=== PATIENT | female | born 1950 | race Caucasian/White ===

== ENCOUNTER 2019-06-04 08:28 | Emergency (ER) | payer OTHER ==
[2019-06-04] MEDS ORDERED: BUPIVACAINE/PF 0.5% 30ML VIAL ONE (08:55)
[2019-06-04] MEDS ORDERED: LIDOCAINE HCL-MPF 2% 5ML VIAL ONE (08:56)
== END 2019-06-04 11:04 | disposition home or self-care (01) ==
LOC: EDH 08:28
DX: R51 Headache (principal); S82.832D Other fracture of upper and lower end of left fibula, subsequent encounter for closed fracture with routine healing; I10 Essential (primary) hypertension; E78.00 Pure hypercholesterolemia, unspecified; Z88.2 Allergy status to sulfonamides; Z90.710 Acquired absence of both cervix and uterus; Z90.49 Acquired absence of other specified parts of digestive tract; Z90.89 Acquired absence of other organs; Z87.891 Personal history of nicotine dependence; X58.XXXD Exposure to other specified factors, subsequent encounter
CPT/HCPCS: 20552; 73610; 99284; J3490 ×2

== ENCOUNTER 2019-08-28 18:19 | Emergency (ER) | payer OTHER ==
[2019-08-28] MEDS ORDERED: MORPHINE SULFATE 4 MG/1ML SYG ONE ×2 (19:24→22:05)
[2019-08-28] MEDS ORDERED: KETOROLAC TROMETHAMINE 30MG/ML ONE (22:05)
== END 2019-08-28 22:41 | disposition home or self-care (01) ==
LOC: EDH 18:19
DX: S90.32XA Contusion of left foot, initial encounter (principal); E78.00 Pure hypercholesterolemia, unspecified; I10 Essential (primary) hypertension; Z90.49 Acquired absence of other specified parts of digestive tract; Z90.710 Acquired absence of both cervix and uterus; Z88.2 Allergy status to sulfonamides; X58.XXXA Exposure to other specified factors, initial encounter; Y93.89 Activity, other specified; Y92.39 Other specified sports and athletic area as the place of occurrence of the external cause; Y99.8 Other external cause status
CPT/HCPCS: 73630; 73700; 96372 ×3; 99284; J1885; J2270 ×2

== ENCOUNTER → 2019-12-14 | Outpatient (CLI) | payer MEDICARE | END | disposition home or self-care (01) | LOC: RAH 13:40 | PROVIDERS: ATTEND Physical Medicine & Rehabilitation | DX: M53.2X2 Spinal instabilities, cervical region (principal); M54.81 Occipital neuralgia | CPT/HCPCS: 72050 ==

== ENCOUNTER 2021-04-08 23:47 | Emergency (ER) | payer MEDICARE ==
[~2021-04-08] VITALS: Ht 175.3 cm; Wt 95.3 kg
[2021-04-09 00:11] VITALS: BP 168/85
[2021-04-09] MEDS ORDERED: LIDOCAINE HCL-MPF 1% 2ML VIAL ONE (00:14)
[2021-04-09] MEDS ORDERED: PHENAZOPYRIDINE HCL 200 MG TABLET ONE (00:26)
[2021-04-09] MEDS ORDERED: CEFTRIAXONE 1G VIAL IM ONE (00:30)
[2021-04-09] MEDS ORDERED: PHENAZOPYRIDINE HCL 200 MG TABLET PO ONE (00:30)
[2021-04-09 00:32] LABS: APPEARANCE,URINE CLEAR (CLEAR); BILIRUBIN,URINE MODERATE (NEGATIVE); COLOR,URINE YELLOW (YELLOW); GLUCOSE, URINE (UA) NEGATIVE (NEGATIVE); KETONES,URINE 5 mg/dL (NEGATIVE); LEUKOCYTE ESTERASE ,URINE LARGE (NEGATIVE); NITRATE,URINE POSITIVE (NEGATIVE); OCCULT BLOOD,URINE LARGE (NEGATIVE); PROTEIN,URINE >=300 mg/dL (NEGATIVE)
[2021-04-09 00:42] LABS: BACTERIA,URINE Few /HPF (None Seen); MUCUS,URINE Few LPF (None Seen); RBC,URINE TNTC /HPF (0-1); SQUAMOUS EPITHELIAL CELL,UR None Seen /HPF (0-2); WBC,URINE TNTC /HPF (0-1)
[2021-04-09 01:07] VITALS: BP 167/78
[2021-04-09 02:02] VITALS: BP 165/86
[2021-04-09] MEDS ORDERED: CEPH500B PO (02:07)
[2021-04-09] MEDS ORDERED: PHEN-847 PO (02:09)
== END 2021-04-09 02:24 | disposition home or self-care (01) ==
LOC: EDH 23:47
DX: N30.91 Cystitis, unspecified with hematuria (principal); K21.9 Gastro-esophageal reflux disease without esophagitis; Z88.2 Allergy status to sulfonamides
CPT/HCPCS: 81001; 87077; 87088; 87186; 96372; J0696; J3490

== ENCOUNTER 2021-07-11 19:35 | Inpatient (IN) | payer MEDICARE, OTHER ==
[~2021-07-11] VITALS: Ht 175.3 cm; Wt 95.9 kg
[~2021-07-11 19:35] MED LIST: CEPH500B PO; PHEN-847 PO
[2021-07-11 20:26] LABS: BASOPHILS % (AUTO) 0.5 % (0.0-5.0); HEMATOCRIT 36.2 % (36-48); LYMPHOCYTES % (AUTO) 34.5 % (21.0-51.0); MEAN CORPUSCULAR HEMOGLOBIN 29.5 pg (27.0-33.0); MEAN CORPUSCULAR HGB CONC 33.7 g/dL (32.0-36.0); MEAN CORPUSCULAR VOLUME 87.4 fL (79-99); MONOCYTES % (AUTO) 6.2 % (3.0-13.0); NEUTROPHILS % (AUTO) 58.4 % (40.0-77.0); PLATELET COUNT (AUTO) 240 K/uL (130-400); RED BLOOD CELL COUNT(AUTO) 4.14 MIL/uL (4.00-5.50); RED CELL DISTRIBUTION WIDTH 13.9 % (11.0-15.5); WHITE BLOOD COUNT (AUTO) 10.4 K/uL (4.8-10.8)
[2021-07-11 20:36] LABS: CREATININE 0.8 mg/dL (0.5-1.5); POTASSIUM 3.2 mmol/L (3.5-5.1)
[2021-07-11 20:42] LABS: ALBUMIN 3.8 g/dL (3.5-5.0); B-TYPE NATRIURETIC PEPTIDE 261 pg/mL (0-100); BILIRUBIN,TOTAL 0.4 mg/dL (0.2-1.0); TOTAL PROTEIN, SERUM 7.2 g/dL (6.0-8.3)
[2021-07-11] MEDS ORDERED: METOPROLOL TARTRATE 1 MG/ML 5ML VIAL IV ONE (21:00)
[2021-07-11 21:34] LABS: APPEARANCE,URINE Clear (CLEAR); BILIRUBIN,URINE Negative (NEGATIVE); COLOR,URINE Dark Yellow (YELLOW); GLUCOSE, URINE (UA) Negative (NEGATIVE); KETONES,URINE Negative (NEGATIVE); LEUKOCYTE ESTERASE ,URINE Negative (NEGATIVE); NITRATE,URINE Negative (NEGATIVE); OCCULT BLOOD,URINE Negative (NEGATIVE); PH,URINE 6.5 (5.0-8.0); PROTEIN,URINE Trace mg/dL (NEGATIVE); UROBILINOGEN,URINE 0.2 mg/dL (0.2-1.0)
[2021-07-11 21:47] LABS: BACTERIA,URINE Few /HPF (None Seen); RBC,URINE 0-1 /HPF (0-1); SQUAMOUS EPITHELIAL CELL,UR Moderate /HPF (0-2)
[2021-07-11] MEDS ORDERED: OMEP20CA12 PO (21:51)
[2021-07-11] MEDS ORDERED: POTA-79 PO (21:51)
[2021-07-11] MEDS ORDERED: LEVO25CA4 PO (21:51)
[2021-07-11] MEDS ORDERED: GABA600T10 PO (21:51)
[2021-07-11] MEDS ORDERED: DRON10CA5 PO (21:51)
[2021-07-11] MEDS ORDERED: LOSA25TA41 PO (21:51)
[2021-07-11] MEDS ORDERED: ATOR40TA69 PO (21:51)
[2021-07-11] MEDS ORDERED: METF500S7 PO (21:51)
[2021-07-11] MEDS ORDERED: METO25TA6 PO (21:51)
[2021-07-11] MEDS ORDERED: FUROSEMIDE 20MG VIAL ONE (22:24)
[2021-07-11] MEDS ORDERED: FUROSEMIDE 20MG VIAL IV ONE (22:30)
[2021-07-11] MEDS ORDERED: KCL 20 MEQ ERTAB PO ONE (22:30)
[2021-07-11] MEDS ORDERED: LACTULOSE 20 GM/30 ML UDCUP PO PRN (23:00)
[2021-07-11] MEDS ORDERED: HYDRALAZINE 20MG/ML VIAL IV PRN (23:00)
[2021-07-11] MEDS ORDERED: HYDROCODONE/ACETAMINOPHEN 5/325 MG TAB PO PRN ×2 (23:00)
[2021-07-11] MEDS ORDERED: MAG/ALUM/SIMETH 30 ML UDCUP PO PRN (23:00)
[2021-07-11] MEDS ORDERED: GUAIFENESIN-DM 200/20 MG 10 ML PO PRN (23:00)
[2021-07-11] MEDS ORDERED: ONDANSETRON 4MG INJ IV PRN (23:00)
[2021-07-11 23:07] LABS: CHOLESTEROL 109 mg/dL (<200); HDL CHOLESTEROL 31 mg/dL (35-85); LDL DIRECT 57 mg/dL (0-99); TRIGLYCERIDES 168 mg/dL (30-200)
[2021-07-11 23:14] LABS: PROTHROMBIN TIME 10.9 SEC (9.6-11.6)
[2021-07-11 23:15] LABS: PARTIAL THROMBOPLASTIN TIME 24.6 SEC (26.3-35.5)
[2021-07-11 23:16] LABS: HEMOGLOBIN A1C 5.8 % (4.0-6.0)
[2021-07-11 23:19] LABS: MAGNESIUM 1.4 mg/dL (1.80-2.40); THYROID STIMULATING HORMONE 3.81 uIU/mL (0.36-3.74)
[2021-07-11] MEDS: ENOXAPARIN SODIUM 100 MG/1 ML SQ SCH (23:20)
[2021-07-12] VITALS (7 sets, daily range): BP systolic 132–164; BP diastolic 85–107
[2021-07-12] MEDS ORDERED: METOPROLOL TARTRATE 1 MG/ML 5ML VIAL IV ONE ×2 (03:21→03:30)
[2021-07-12] MEDS ORDERED: MAGNESIUM 2GM PREMIX 50ML 50 ML IV ONE (03:22)
[2021-07-12] MEDS ORDERED: MAGNESIUM 2GM PREMIX 50ML 50 ML IV SCH (03:30)
[2021-07-12] MEDS ORDERED: ACETAMINOPHEN 325 MG TAB PO PRN (04:30)
[2021-07-12] MEDS: ACETAMINOPHEN 325 MG TAB PO PRN ×2 (04:44→17:09)
[2021-07-12 04:45] LABS: CREATININE 0.8 mg/dL (0.5-1.5); MAGNESIUM 2.6 mg/dL (1.80-2.40); POTASSIUM 3.1 mmol/L (3.5-5.1)
[2021-07-12] MEDS ORDERED: DILTIAZEM 125 MG/25 ML INJ 125 MG in 0.9%NACL 100ML 100 ML IV PRN (07:00)
[2021-07-12] MEDS ORDERED: DILTIAZEM 25MG INJ IVP PRN (07:00)
[2021-07-12] MEDS: FAMOTIDINE 20MG TAB PO SCH ×2 (08:15→20:08)
[2021-07-12] MEDS: LOSARTAN 25 MG TABLET PO SCH (08:16)
[2021-07-12] MEDS: ATORVASTATIN 40 MG TABLET PO SCH (08:16)
[2021-07-12] MEDS: FUROSEMIDE 20MG VIAL IV SCH (08:17)
[2021-07-12] MEDS ORDERED: METOPROLOL TARTRATE 25 MG TAB PO SCH (09:00)
[2021-07-12] MEDS: GABAPENTIN 300 MG CAPSULE PO SCH ×2 (10:04→20:08)
[2021-07-12] MEDS: LEVOTHYROXINE 25 MCG TABLET PO SCH (10:05)
[2021-07-12] MEDS: ENOXAPARIN SODIUM 100 MG/1 ML SQ SCH ×2 (10:07→23:06)
[2021-07-12] MEDS: KCL 20 MEQ ERTAB PO PRN ×3 (10:24→17:06)
[2021-07-12] MEDS: METOPROLOL TARTRATE 50 MG TAB PO SCH (20:08)
[2021-07-12] MEDS: APIXABAN 5 MG TABLET PO SCH (20:08)
[2021-07-12] MEDS: LOSARTAN/HYDROCHLOROTHIAZIDE 50-12.5MG TABLET PO SCH (20:09)
[2021-07-13] VITALS: BP 144/82
[2021-07-13 04:00] VITALS: BP 160/98
[2021-07-13 05:01] LABS: BASOPHILS % (AUTO) 0.5 % (0.0-5.0); EOSINOPHILS % (AUTO) 1.7 % (0.0-8.0); HEMATOCRIT 40.4 % (36-48); LYMPHOCYTES % (AUTO) 28.4 % (21.0-51.0); MEAN CORPUSCULAR HEMOGLOBIN 28.8 pg (27.0-33.0); MEAN CORPUSCULAR HGB CONC 31.7 g/dL (32.0-36.0); MEAN CORPUSCULAR VOLUME 90.8 fL (79-99); MONOCYTES % (AUTO) 6.5 % (3.0-13.0); NEUTROPHILS % (AUTO) 62.5 % (40.0-77.0); PLATELET COUNT (AUTO) 255 K/uL (130-400); RED BLOOD CELL COUNT(AUTO) 4.45 MIL/uL (4.00-5.50); RED CELL DISTRIBUTION WIDTH 13.8 % (11.0-15.5)
[2021-07-13 05:27] LABS: ALBUMIN 3.7 g/dL (3.5-5.0); BILIRUBIN,TOTAL 0.7 mg/dL (0.2-1.0); CREATININE 0.8 mg/dL (0.5-1.5); POTASSIUM 3.6 mmol/L (3.5-5.1); TOTAL PROTEIN, SERUM 7.1 g/dL (6.0-8.3)
[2021-07-13] MEDS: LEVOTHYROXINE 25 MCG TABLET PO SCH (06:27)
[2021-07-13] MEDS: ATORVASTATIN 40 MG TABLET PO SCH (09:32)
[2021-07-13] MEDS: GABAPENTIN 300 MG CAPSULE PO SCH (09:32)
[2021-07-13] MEDS: LOSARTAN 25 MG TABLET PO SCH (09:32)
[2021-07-13] MEDS: LOSARTAN/HYDROCHLOROTHIAZIDE 50-12.5MG TABLET PO SCH (09:32)
[2021-07-13] MEDS: APIXABAN 5 MG TABLET PO SCH (09:33)
[2021-07-13] MEDS: FUROSEMIDE 20MG VIAL IV SCH (09:33)
[2021-07-13] MEDS: FAMOTIDINE 20MG TAB PO SCH (09:33)
[2021-07-13] MEDS: METOPROLOL TARTRATE 50 MG TAB PO SCH (09:33)
[2021-07-13 09:47] VITALS: BP 162/85
[2021-07-13] MEDS: ENOXAPARIN SODIUM 100 MG/1 ML SQ SCH (11:38)
[2021-07-13 12:46] VITALS: BP 161/98
[2021-07-13] MEDS ORDERED: APIX5TAB PO (15:30)
== END 2021-07-13 16:45 | disposition home or self-care (01) | DRG 291 ==
LOC: EDH 19:35 → EDHIP 22:33 → 4CH 07-12 01:37
PROVIDERS: ADMIT Hospitalist; ATTEND Hospitalist
DX: I11.0 Hypertensive heart disease with heart failure (principal); I50.21 Acute systolic (congestive) heart failure; I16.0 Hypertensive urgency; I48.91 Unspecified atrial fibrillation; E03.9 Hypothyroidism, unspecified; K21.9 Gastro-esophageal reflux disease without esophagitis; E11.40 Type 2 diabetes mellitus with diabetic neuropathy, unspecified; E78.00 Pure hypercholesterolemia, unspecified; Z79.01 Long term (current) use of anticoagulants; Z90.710 Acquired absence of both cervix and uterus; Z90.49 Acquired absence of other specified parts of digestive tract; Z88.2 Allergy status to sulfonamides; Z83.3 Family history of diabetes mellitus; Z82.3 Family history of stroke; Z82.49 Family history of ischemic heart disease and other diseases of the circulatory system
CPT/HCPCS: 36415; 71045; 80048; 80053; 80061; 81001; 82330; 82550; 82948; 83036; 83735; 83880; 84100; 84443; 84481; 84484; 85025; 85610; 85730; 93005; 93306; 93356; 99291; G0378; J0360; J1650; J1940; J3475; J3490

== ENCOUNTER → 2021-12-18 | Outpatient (CLI) | payer OTHER ==
[~2021-12-18] MED LIST changes: +APIX5TAB PO; +ATOR40TA69 PO; -CEPH500B PO; +DRON10CA5 PO; +GABA600T10 PO; +LEVO25CA4 PO; +LOSA25TA41 PO; +METF500S7 PO; +METO25TA6 PO; +OMEP20CA12 PO; +POTA-79 PO
== END | disposition home or self-care (01) ==
LOC: RAH 14:15
PROVIDERS: ATTEND Internal Medicine Cardiovascular Disease
DX: Z13.6 Encounter for screening for cardiovascular disorders (principal); I51.5 Myocardial degeneration
CPT/HCPCS: 75571

== ENCOUNTER → 2022-01-15 | Outpatient (CLI) | payer OTHER ==
[~2022-01-15] VITALS: Ht 175.3 cm; Wt 92.5 kg
[~2022-01-15] MED LIST changes: +REGADENOSON 0.4 MG/5 ML PF SYG IVP SCH
== END | disposition home or self-care (01) ==
LOC: SHCH 08:56
PROVIDERS: ATTEND Internal Medicine Cardiovascular Disease
DX: R93.1 Abnormal findings on diagnostic imaging of heart and coronary circulation (principal); R94.39 Abnormal result of other cardiovascular function study; I10 Essential (primary) hypertension; I48.91 Unspecified atrial fibrillation; Z79.01 Long term (current) use of anticoagulants
CPT/HCPCS: 78452; 93017; 96374; A9500 ×2; J2785

== ENCOUNTER → 2022-05-10 | Outpatient (CLI) | payer OTHER ==
[~2022-05-10] MED LIST changes: -METF500S7 PO; +METF500S9 PO; -REGADENOSON 0.4 MG/5 ML PF SYG IVP SCH
== END | disposition home or self-care (01) ==
LOC: SLP 20:18
PROVIDERS: ATTEND Internal Medicine Cardiovascular Disease
DX: G47.33 Obstructive sleep apnea (adult) (pediatric) (principal)
CPT/HCPCS: 95810

== ENCOUNTER → 2022-05-19 | Outpatient (CLI) | payer OTHER | END | disposition home or self-care (01) | LOC: SLP 20:17 | PROVIDERS: ATTEND Internal Medicine Cardiovascular Disease | DX: G47.33 Obstructive sleep apnea (adult) (pediatric) (principal) | CPT/HCPCS: 95811 ==

== ENCOUNTER 2023-01-07 08:56 | Emergency (ER) | payer OTHER ==
[~2023-01-07] VITALS: Ht 175.3 cm; Wt 95.3 kg
[~2023-01-07 08:56] MED LIST changes: -DRON10CA5 PO; +DRON10CA8 PO; +POTA-364 PO; -POTA-79 PO
[2023-01-07 09:00] VITALS: BP 137/73
[2023-01-07] MEDS ORDERED: PHEN-776 PO (09:22)
[2023-01-07] MEDS ORDERED: CEPH500T PO (09:22)
[2023-01-07] MEDS: CEPHALEXIN 500 MG CAPSULE PO ONE (09:28)
[2023-01-07] MEDS: PHENAZOPYRIDINE HCL 200 MG TABLET PO ONE (09:28)
== END 2023-01-07 09:34 | disposition home or self-care (01) ==
LOC: EDH 08:56
DX: N30.91 Cystitis, unspecified with hematuria (principal); I10 Essential (primary) hypertension; I48.91 Unspecified atrial fibrillation; E03.9 Hypothyroidism, unspecified; E78.00 Pure hypercholesterolemia, unspecified; K31.84 Gastroparesis; Z79.01 Long term (current) use of anticoagulants; Z79.899 Other long term (current) drug therapy; Z88.2 Allergy status to sulfonamides; Z90.49 Acquired absence of other specified parts of digestive tract

== ENCOUNTER 2023-09-24 11:41 | Emergency (ER) | payer OTHER ==
[~2023-09-24] VITALS: Ht 175.3 cm; Wt 85.3 kg
[~2023-09-24 11:41] MED LIST changes: +CEPH500T PO; +PHEN-776 PO
[2023-09-24 11:43] VITALS: BP 143/86; PULSE 59; RESP 20
[2023-09-24 15:26] LABS: BASOPHILS # (AUTO) 0.05 K/uL (0.00-0.20); BASOPHILS % (AUTO) 0.4 % (0.0-5.0); EOSINOPHILS # (AUTO) 0.06 K/uL (0.00-0.70); EOSINOPHILS % (AUTO) 0.5 % (0.0-8.0); HEMATOCRIT 42.1 % (36-48); IMMATURE GRANULOCYTE ABSOLUTE 0.03 K/uL (0-1); LYMPHOCYTES % (AUTO) 26.2 % (21.0-51.0); MEAN CORPUSCULAR HEMOGLOBIN 27.7 pg (27.0-33.0); MEAN CORPUSCULAR HGB CONC 34.4 g/dL (32.0-36.0); MEAN CORPUSCULAR VOLUME 80.3 fL (79-99); MONOCYTES # (AUTO) 0.8 K/uL (0.1-1.0); MONOCYTES % (AUTO) 7.1 % (3.0-13.0); NEUTROPHILS # (AUTO) 7.6 K/uL (1.8-7.7); NEUTROPHILS % (AUTO) 65.5 % (40.0-77.0); PLATELET COUNT (AUTO) 324 K/uL (130-400); RED BLOOD CELL COUNT(AUTO) 5.24 MIL/uL (4.00-5.50); RED CELL DISTRIBUTION WIDTH 13.2 % (11.0-15.5); WHITE BLOOD COUNT (AUTO) 11.6 K/uL (4.8-10.8)
[2023-09-24 15:34] LABS: APPEARANCE,URINE CLEAR (CLEAR); BILIRUBIN,URINE NEGATIVE (NEGATIVE); COLOR,URINE LIGHT-YELLOW (YELLOW); GLUCOSE, URINE (UA) NEGATIVE (NEGATIVE); KETONES,URINE 10 mg/dL (NEGATIVE); LEUKOCYTE ESTERASE ,URINE NEGATIVE Leu/uL (NEGATIVE); NITRATE,URINE NEGATIVE (NEGATIVE); OCCULT BLOOD,URINE NEGATIVE (NEGATIVE); PH,URINE 6.5 (5.0-8.0); PROTEIN,URINE NEGATIVE (NEGATIVE); UROBILINOGEN,URINE 0.2 mg/dL (0.2-1.0)
[2023-09-24 15:38] LABS: ADD UA MICROSCOPIC YES
[2023-09-24 15:39] LABS: BACTERIA,URINE RARE /HPF (None Seen); RBC,URINE 0-1 /HPF (0-1); SQUAMOUS EPITHELIAL CELL,UR FEW /HPF (0-2)
[2023-09-24 16:09] LABS: CREATININE 0.9 mg/dL (0.5-1.5); POTASSIUM 3.2 mmol/L (3.5-5.1)
[2023-09-24] MEDS: MORPHINE 2 MG SYG IVP ONE (16:13)
[2023-09-24] MEDS: 0.9%NACL 1000ML 1,000 ML IV ONE (16:13)
[2023-09-24] MEDS: ONDANSETRON 4MG INJ IVP ONE (16:13)
[2023-09-24 16:14] LABS: ALBUMIN 4.3 g/dL (3.5-5.0); BILIRUBIN,TOTAL 0.8 mg/dL (0.2-1.0); TOTAL PROTEIN, SERUM 8.5 g/dL (6.0-8.3)
[2023-09-24] MEDS ORDERED: IOHEXOL 350 MG/ML 100ML INFUS..BTL IV ONE (16:31)
[2023-09-24] MEDS ORDERED: ONDA8TAB12 PO (18:28)
== END 2023-09-24 18:55 | disposition home or self-care (01) ==
LOC: EDH 11:41
DX: E11.43 Type 2 diabetes mellitus with diabetic autonomic (poly)neuropathy (principal); K31.84 Gastroparesis; I10 Essential (primary) hypertension; E78.00 Pure hypercholesterolemia, unspecified; E03.9 Hypothyroidism, unspecified; I48.91 Unspecified atrial fibrillation; Z79.899 Other long term (current) drug therapy; Z79.84 Long term (current) use of oral hypoglycemic drugs; Z79.82 Long term (current) use of aspirin; Z90.49 Acquired absence of other specified parts of digestive tract; Z90.710 Acquired absence of both cervix and uterus; Z98.890 Other specified postprocedural states; Z88.2 Allergy status to sulfonamides
CPT/HCPCS: 99285; 74177; 96374; 96361; 96375; 80053; 83690; 85025; 81001; 36415; J2270; J7030; J2405; Q9967

== ENCOUNTER 2023-10-08 08:14 | Day surgery (SDC) | payer OTHER ==
[~2023-10-08] VITALS: Ht 175.3 cm; Wt 86.2 kg
[~2023-10-08 08:14] MED LIST changes: +0.9%NACL 1000ML 1,000 ML IV ONE; -CEPH500T PO; -DRON10CA8 PO; -PHEN-776 PO; -PHEN-847 PO; -POTA-364 PO; +POTA-79 PO
[2023-10-08 10:00] VITALS: BP 186/92; PULSE 64; RESP 15
[2023-10-08] MEDS ORDERED: METF-444 PO (10:18)
[2023-10-08] MEDS ORDERED: METOPROLOL PO (10:19)
[2023-10-08] MEDS ORDERED: HYDROXYZINE PO (10:24)
[2023-10-08] MEDS ORDERED: SPIR25TA6 PO (10:24)
[2023-10-08] MEDS ORDERED: HYDR25TA PO (10:24)
[2023-10-08] MEDS ORDERED: SOTA80TA PO (10:24)
[2023-10-08] MEDS ORDERED: TELM80TA10 PO (10:24)
== END 2023-10-08 11:30 | disposition home or self-care (01) ==
LOC: DAH 08:14 → ENDO 08:14
PROVIDERS: ATTEND Internal Medicine Gastroenterology
DX: R10.10 Upper abdominal pain, unspecified (principal); K22.70 Barrett's esophagus without dysplasia; K29.70 Gastritis, unspecified, without bleeding; R93.3 Abnormal findings on diagnostic imaging of other parts of digestive tract; K31.84 Gastroparesis; K44.9 Diaphragmatic hernia without obstruction or gangrene; K76.0 Fatty (change of) liver, not elsewhere classified; I48.91 Unspecified atrial fibrillation; K57.30 Diverticulosis of large intestine without perforation or abscess without bleeding; I10 Essential (primary) hypertension; E78.5 Hyperlipidemia, unspecified; Z53.8 Procedure and treatment not carried out for other reasons; Z79.01 Long term (current) use of anticoagulants; Z79.899 Other long term (current) drug therapy; Z98.890 Other specified postprocedural states; Z90.49 Acquired absence of other specified parts of digestive tract; Z90.710 Acquired absence of both cervix and uterus; Z90.89 Acquired absence of other organs; Z87.891 Personal history of nicotine dependence; Z72.89 Other problems related to lifestyle; Z86.010 Personal history of colon polyps
CPT/HCPCS: 82948; J7030

== ENCOUNTER 2023-10-15 08:30 | Day surgery (SDC) | payer OTHER ==
[2023-10-15] VITALS (11 sets, daily range): BP systolic 113–149; BP diastolic 58–92; PULSE 60–82; RESP 14–20
[~2023-10-15] VITALS: Ht 175.3 cm; Wt 83.9 kg
[~2023-10-15 08:30] MED LIST changes: -0.9%NACL 1000ML 1,000 ML IV ONE; +HYDR25TA PO; +HYDROXYZINE PO; -LOSA25TA41 PO; +METF-444 PO; -METF500S9 PO; -METO25TA6 PO; +METOPROLOL PO; +SOTA80TA PO; +SPIR25TA6 PO; +TELM80TA10 PO
[2023-10-15] MEDS: 0.9%NACL 1000ML 1,000 ML IV ONE (09:18)
[2023-10-15] MEDS ORDERED: PROPOFOL 10 MG/ML 20ML VIAL IV ONE (10:33)
[2023-10-15] MEDS ORDERED: LIDOCAINE HCL 400MG/20ML VIAL ONE (10:33)
== END 2023-10-15 12:10 | disposition home or self-care (01) ==
LOC: DAH 08:30 → ENDO 08:30
PROVIDERS: ATTEND Internal Medicine Gastroenterology
DX: R12 Heartburn (principal); R10.10 Upper abdominal pain, unspecified; R93.2 Abnormal findings on diagnostic imaging of liver and biliary tract; K29.50 Unspecified chronic gastritis without bleeding; K44.9 Diaphragmatic hernia without obstruction or gangrene; K22.70 Barrett's esophagus without dysplasia; K21.9 Gastro-esophageal reflux disease without esophagitis; K31.89 Other diseases of stomach and duodenum; K57.30 Diverticulosis of large intestine without perforation or abscess without bleeding; K31.84 Gastroparesis; K76.0 Fatty (change of) liver, not elsewhere classified; I10 Essential (primary) hypertension; E78.5 Hyperlipidemia, unspecified; I48.91 Unspecified atrial fibrillation; Z86.010 Personal history of colon polyps; Z90.49 Acquired absence of other specified parts of digestive tract; Z90.89 Acquired absence of other organs; Z90.710 Acquired absence of both cervix and uterus; Z87.891 Personal history of nicotine dependence; Z79.84 Long term (current) use of oral hypoglycemic drugs; Z79.899 Other long term (current) drug therapy
CPT/HCPCS: 82948; 43239; J3490; J7030 ×2; J2704; A4620; A4215; A4223; A7002; A4222; A4221; A4663; A4606

== ENCOUNTER → 2023-12-15 | Outpatient (CLI) | payer OTHER ==
[~2023-12-15] MED LIST changes: +POTA-364 PO; -POTA-79 PO
== END | disposition home or self-care (01) ==
LOC: RAH 11:17
PROVIDERS: ATTEND Internal Medicine
DX: Z12.31 Encounter for screening mammogram for malignant neoplasm of breast (principal); R92.333 Mammographic heterogeneous density, bilateral breasts
CPT/HCPCS: 77063; 77067

== ENCOUNTER 2024-01-04 15:52 | Observation (INO) | payer OTHER, MEDICARE ==
[~2024-01-04] VITALS: Ht 175.3 cm; Wt 83.7 kg
[2024-01-04 17:20] LABS: BASOPHILS # (AUTO) 0.07 K/uL (0.00-0.20); BASOPHILS % (AUTO) 0.6 % (0.0-5.0); EOSINOPHILS # (AUTO) 0.07 K/uL (0.00-0.70); EOSINOPHILS % (AUTO) 0.6 % (0.0-8.0); IMMATURE GRANULOCYTE ABSOLUTE 0.03 K/uL (0-1); LYMPHOCYTES # (AUTO) 3.2 K/uL (1.0-4.8); LYMPHOCYTES % (AUTO) 25.9 % (21.0-51.0); MEAN CORPUSCULAR HEMOGLOBIN 28.6 pg (27.0-33.0); MEAN CORPUSCULAR HGB CONC 33.7 g/dL (32.0-36.0); MONOCYTES # (AUTO) 0.9 K/uL (0.1-1.0); MONOCYTES % (AUTO) 7.6 % (3.0-13.0); NEUTROPHILS % (AUTO) 65.1 % (40.0-77.0); PLATELET COUNT (AUTO) 305 K/uL (130-400); RED BLOOD CELL COUNT(AUTO) 4.12 MIL/uL (4.00-5.50); RED CELL DISTRIBUTION WIDTH 13.5 % (11.0-15.5); WHITE BLOOD COUNT (AUTO) 12.3 K/uL (4.8-10.8)
[2024-01-04 17:28] LABS: CREATININE 0.9 mg/dL (0.5-1.0)
[2024-01-04 17:30] LABS: INR <= 0.93 (0.85-1.15)
[2024-01-04 17:31] LABS: PARTIAL THROMBOPLASTIN TIME 26.7 SEC (26.3-35.5)
[2024-01-04 17:37] LABS: ALBUMIN 3.6 g/dL (3.5-5.0); BILIRUBIN,TOTAL 0.3 mg/dL (0.2-1.0); TOTAL PROTEIN, SERUM 7.2 g/dL (6.0-8.3)
[2024-01-04] MEDS ORDERED: ACETAMINOPHEN 325 MG TAB PO PRN ×2 (20:30)
[2024-01-04] MEDS ORDERED: ONDANSETRON 4MG INJ IV PRN (20:30)
[2024-01-04] MEDS ORDERED: HYDRALAZINE 20MG/ML VIAL IV PRN (20:30)
[2024-01-04] MEDS: METOPROLOL TARTRATE 25 MG TAB PO SCH ×2 (21:00→21:15)
[2024-01-04] MEDS: FAMOTIDINE 20MG TAB PO SCH (21:14)
[2024-01-04] MEDS: GABAPENTIN 300 MG CAPSULE PO SCH (21:15)
[2024-01-04] MEDS: APIXABAN 5 MG TABLET PO SCH (21:15)
[2024-01-04] MEDS: HYDROXYZINE 25 MG TABLET PO SCH (21:15)
[2024-01-04] MEDS: 0.9%NACL 1000ML 1,000 ML IV SCH (21:16)
[2024-01-04] MEDS ORDERED: POTASSIUM CHLORIDE 20MEQ/100ML 100 ML IV PRN (22:30)
[2024-01-04] MEDS ORDERED: KCL 20 MEQ ERTAB PO PRN (22:30)
[2024-01-04] MEDS ORDERED: POTASSIUM CHLORIDE 10% ELIXIR 20 MEQ/15 ML UDCUP PO PRN (22:30)
[2024-01-04 22:35] VITALS: BP 144/83; PULSE 108; RESP 20
[2024-01-04 22:38] VITALS: BP 140/97; PULSE 118
[2024-01-04 22:41] VITALS: BP 143/74; PULSE 101
[2024-01-05 03:00] VITALS: BP 122/74; PULSE 84; RESP 21
[2024-01-05 04:47] LABS: BASOPHILS # (AUTO) 0.05 K/uL (0.00-0.20); BASOPHILS % (AUTO) 0.4 % (0.0-5.0); EOSINOPHILS # (AUTO) 0.07 K/uL (0.00-0.70); EOSINOPHILS % (AUTO) 0.6 % (0.0-8.0); HEMATOCRIT 35.5 % (36-48); IMMATURE GRANULOCYTE ABSOLUTE 0.06 K/uL (0-1); LYMPHOCYTES # (AUTO) 3.4 K/uL (1.0-4.8); LYMPHOCYTES % (AUTO) 29.1 % (21.0-51.0); MEAN CORPUSCULAR HEMOGLOBIN 28.4 pg (27.0-33.0); MEAN CORPUSCULAR HGB CONC 34.4 g/dL (32.0-36.0); MEAN CORPUSCULAR VOLUME 82.8 fL (79-99); MONOCYTES # (AUTO) 0.8 K/uL (0.1-1.0); MONOCYTES % (AUTO) 6.6 % (3.0-13.0); NEUTROPHILS # (AUTO) 7.4 K/uL (1.8-7.7); NEUTROPHILS % (AUTO) 62.8 % (40.0-77.0); PLATELET COUNT (AUTO) 293 K/uL (130-400); RED BLOOD CELL COUNT(AUTO) 4.29 MIL/uL (4.00-5.50); RED CELL DISTRIBUTION WIDTH 13.5 % (11.0-15.5); WHITE BLOOD COUNT (AUTO) 11.8 K/uL (4.8-10.8)
[2024-01-05 05:06] LABS: ALBUMIN 3.2 g/dL (3.5-5.0); BILIRUBIN,TOTAL 0.4 mg/dL (0.2-1.0); CREATININE 0.8 mg/dL (0.5-1.0); MAGNESIUM 1.8 mg/dL (1.80-2.40); POTASSIUM 4.4 mmol/L (3.5-5.1); THYROID STIMULATING HORMONE 3.39 uIU/mL (0.36-3.74); TOTAL PROTEIN, SERUM 6.6 g/dL (6.0-8.3)
[2024-01-05 05:11] LABS: HEMOGLOBIN A1C 6.4 % (4.0-6.0)
[2024-01-05] MEDS: MAGNESIUM 2GM PREMIX 50ML 50 ML IV PRN (05:15)
[2024-01-05] MEDS: INSULIN HUMULIN R 100 UNIT/ML 3ML SQ SCH (05:39)
[2024-01-05] MEDS: LEVOTHYROXINE 25 MCG TABLET PO SCH (05:40)
[2024-01-05 08:00] VITALS: BP_SYST 120; BP_SYST 124; BP_SYST 132; BP_DIAS 61; BP_DIAS 73; BP_DIAS 81; PULSE 55; PULSE 66; PULSE 71; RESP 18; RESP 19; O2SAT 95
[2024-01-05] MEDS: ATORVASTATIN 40 MG TABLET PO SCH (09:12)
[2024-01-05 12:00] VITALS: BP 119/71; PULSE 77; RESP 18
[2024-01-05 16:00] VITALS: BP 120/74; PULSE 64; RESP 19
[2024-01-05 20:00] VITALS: BP 155/72; PULSE 75; RESP 20; O2SAT 95
[2024-01-05] MEDS: GUAIFENESIN-DM 200/20 MG 10 ML PO PRN (20:45)
[2024-01-05] MEDS: SOTALOL HCL 80 MG TABLET PO SCH (20:47)
[2024-01-06] VITALS: BP_SYST 118; BP_SYST 120; BP_SYST 133; BP_DIAS 69; BP_DIAS 75; BP_DIAS 79; PULSE 76; RESP 18
[2024-01-06 04:00] VITALS: BP 126/68; PULSE 71; RESP 18
[2024-01-06 05:27] LABS: BASOPHILS # (AUTO) 0.05 K/uL (0.00-0.20); BASOPHILS % (AUTO) 0.4 % (0.0-5.0); HEMATOCRIT 31.3 % (36-48); IMMATURE GRANULOCYTE ABSOLUTE 0.03 K/uL (0-1); LYMPHOCYTES # (AUTO) 2.7 K/uL (1.0-4.8); LYMPHOCYTES % (AUTO) 23.3 % (21.0-51.0); MEAN CORPUSCULAR HEMOGLOBIN 28.9 pg (27.0-33.0); MEAN CORPUSCULAR HGB CONC 33.5 g/dL (32.0-36.0); MEAN CORPUSCULAR VOLUME 86.2 fL (79-99); MONOCYTES # (AUTO) 0.9 K/uL (0.1-1.0); MONOCYTES % (AUTO) 7.7 % (3.0-13.0); NEUTROPHILS # (AUTO) 7.8 K/uL (1.8-7.7); NEUTROPHILS % (AUTO) 68.3 % (40.0-77.0); PLATELET COUNT (AUTO) 284 K/uL (130-400); RED BLOOD CELL COUNT(AUTO) 3.63 MIL/uL (4.00-5.50); RED CELL DISTRIBUTION WIDTH 13.6 % (11.0-15.5); WHITE BLOOD COUNT (AUTO) 11.4 K/uL (4.8-10.8)
[2024-01-06 06:02] LABS: CREATININE 0.9 mg/dL (0.5-1.0); POTASSIUM 4.1 mmol/L (3.5-5.1)
[2024-01-06 08:00] VITALS: BP 123/53; PULSE 68; RESP 18; O2SAT 95
[2024-01-06 08:03] VITALS: BP 140/75; PULSE 75; RESP 18
[2024-01-06 08:06] VITALS: BP 120/66; PULSE 78; RESP 19
[2024-01-06] MEDS ORDERED: SOTA80TA PO (09:23)
[2024-01-06] MEDS ORDERED: AMOX1TAB15 PO (09:23)
[2024-01-06] MEDS: SPIRONOLACTONE 25 MG TAB PO SCH (10:02)
[2024-01-06] MEDS: CEFTRIAXONE 1G VIAL IVPB ONE (10:04)
[2024-01-06 12:00] VITALS: BP 172/76; PULSE 78; RESP 19
== END 2024-01-06 14:30 | disposition home or self-care (01) ==
LOC: EDH 15:52 → EDHIP 20:20 → 4AH 22:05
PROVIDERS: ADMIT Hospitalist; ATTEND Hospitalist
DX: R00.1 Bradycardia, unspecified (principal); I95.9 Hypotension, unspecified; D72.829 Elevated white blood cell count, unspecified; D64.9 Anemia, unspecified; I10 Essential (primary) hypertension; E87.1 Hypo-osmolality and hyponatremia; E03.9 Hypothyroidism, unspecified; E78.5 Hyperlipidemia, unspecified; E11.40 Type 2 diabetes mellitus with diabetic neuropathy, unspecified; G62.9 Polyneuropathy, unspecified; K21.9 Gastro-esophageal reflux disease without esophagitis; I48.0 Paroxysmal atrial fibrillation; E86.1 Hypovolemia; G47.33 Obstructive sleep apnea (adult) (pediatric); R55 Syncope and collapse; I25.10 Atherosclerotic heart disease of native coronary artery without angina pectoris; K57.92 Diverticulitis of intestine, part unspecified, without perforation or abscess without bleeding; Z88.5 Allergy status to narcotic agent; Z79.84 Long term (current) use of oral hypoglycemic drugs; Z79.899 Other long term (current) drug therapy; Z90.710 Acquired absence of both cervix and uterus; Z90.49 Acquired absence of other specified parts of digestive tract; Z86.2 Personal history of diseases of the blood and blood-forming organs and certain disorders involving the immune mechanism
CPT/HCPCS: 96361 ×2; 99285; 84484; 80053 ×2; 85025 ×3; 85610; 85730; 82948 ×7; 36415 ×3; 71045; 93880; 93005 ×2; 96365; 96366; 83036; 84443; 83735; 80061; 83880 ×2; 82270; 74150; 71250; 93306; 93356; 76376; 97161; 97116; 96367; 80048; G0378 ×41; J7030; J0360; J3475; J0696

== ENCOUNTER → 2024-02-10 | Emergency (ER) | payer OTHER, MEDICARE ==
[~2024-02-10] VITALS: Ht 175.3 cm; Wt 83.9 kg
[~2024-02-10] MED LIST changes: +AMOX1TAB15 PO; -METOPROLOL PO
[2024-02-10 11:01] VITALS: BP 121/70; PULSE 73; RESP 14
[2024-02-10 13:02] LABS: BASOPHILS # (AUTO) 0.06 K/uL (0.00-0.20); BASOPHILS % (AUTO) 0.5 % (0.0-5.0); EOSINOPHILS # (AUTO) 0.03 K/uL (0.00-0.70); EOSINOPHILS % (AUTO) 0.3 % (0.0-8.0); HEMATOCRIT 36.5 % (36-48); IMMATURE GRANULOCYTE ABSOLUTE 0.04 K/uL (0-1); LYMPHOCYTES # (AUTO) 2.8 K/uL (1.0-4.8); LYMPHOCYTES % (AUTO) 23.6 % (21.0-51.0); MEAN CORPUSCULAR HEMOGLOBIN 29.9 pg (27.0-33.0); MONOCYTES # (AUTO) 0.7 K/uL (0.1-1.0); MONOCYTES % (AUTO) 5.8 % (3.0-13.0); NEUTROPHILS # (AUTO) 8.2 K/uL (1.8-7.7); NEUTROPHILS % (AUTO) 69.5 % (40.0-77.0); PLATELET COUNT (AUTO) 305 K/uL (130-400); RED BLOOD CELL COUNT(AUTO) 4.15 MIL/uL (4.00-5.50); RED CELL DISTRIBUTION WIDTH 13.6 % (11.0-15.5); WHITE BLOOD COUNT (AUTO) 11.8 K/uL (4.8-10.8)
[2024-02-10 13:25] LABS: CREATININE 0.9 mg/dL (0.5-1.0); POTASSIUM 3.9 mmol/L (3.5-5.1)
[2024-02-10 13:30] LABS: ALBUMIN 3.8 g/dL (3.5-5.0); BILIRUBIN,TOTAL 0.5 mg/dL (0.2-1.0); TOTAL PROTEIN, SERUM 7.4 g/dL (6.0-8.3)
== END ==
LOC: EDH 10:56
DX: I10 Essential (primary) hypertension (principal); E03.9 Hypothyroidism, unspecified; E11.9 Type 2 diabetes mellitus without complications; E78.00 Pure hypercholesterolemia, unspecified; I48.91 Unspecified atrial fibrillation; K31.84 Gastroparesis; Z88.2 Allergy status to sulfonamides; Z79.01 Long term (current) use of anticoagulants; Z79.84 Long term (current) use of oral hypoglycemic drugs; Z79.899 Other long term (current) drug therapy; Z90.49 Acquired absence of other specified parts of digestive tract; Z90.710 Acquired absence of both cervix and uterus; Z98.890 Other specified postprocedural states
CPT/HCPCS: 36415; 70450; 80053; 84484; 85025; 93005

== ENCOUNTER 2024-05-04 11:19 | Emergency (ER) | payer OTHER, MEDICARE ==
[~2024-05-04] VITALS: Ht 175.3 cm; Wt 83.9 kg
[~2024-05-04 11:19] MED LIST changes: +GABA-1405 PO; -GABA600T10 PO
[2024-05-04 11:53] LABS: MEAN CORPUSCULAR HEMOGLOBIN 28.5 pg (27.0-33.0); MEAN CORPUSCULAR HGB CONC 32.3 g/dL (32.0-36.0); MEAN CORPUSCULAR VOLUME 88.3 fL (79-99); RED BLOOD CELL COUNT(AUTO) 4.53 MIL/uL (4.00-5.50); RED CELL DISTRIBUTION WIDTH 13.4 % (11.0-15.5); WHITE BLOOD COUNT (AUTO) 11.7 K/uL (4.8-10.8)
[2024-05-04 12:01] LABS: CREATININE 0.9 mg/dL (0.5-1.0); POTASSIUM 3.8 mmol/L (3.5-5.1)
[2024-05-04] MEDS: cloNIDine HCL 0.1 MG TABLET PO ONE (13:35)
[2024-05-04 13:48] VITALS: BP 176/80; PULSE 63; RESP 16; TEMP 98.2; O2SAT 98
== END 2024-05-04 13:51 | disposition home or self-care (01) ==
LOC: EDH 11:19
DX: I11.9 Hypertensive heart disease without heart failure (principal); I48.91 Unspecified atrial fibrillation; I25.10 Atherosclerotic heart disease of native coronary artery without angina pectoris; E03.9 Hypothyroidism, unspecified; E11.43 Type 2 diabetes mellitus with diabetic autonomic (poly)neuropathy; E78.00 Pure hypercholesterolemia, unspecified; K31.84 Gastroparesis; Z79.01 Long term (current) use of anticoagulants; Z79.84 Long term (current) use of oral hypoglycemic drugs; Z79.899 Other long term (current) drug therapy; Z88.2 Allergy status to sulfonamides; Z90.49 Acquired absence of other specified parts of digestive tract; Z90.710 Acquired absence of both cervix and uterus; Z98.890 Other specified postprocedural states
CPT/HCPCS: 36415; 80048; 84484; 85027; 93005

== ENCOUNTER → 2024-05-14 | Outpatient (CLI) | payer OTHER, MEDICARE | END | disposition home or self-care (01) | LOC: SHCH 09:19 | PROVIDERS: ATTEND Internal Medicine Cardiovascular Disease | DX: I10 Essential (primary) hypertension (principal) | CPT/HCPCS: 93975 ==

== ENCOUNTER → 2024-07-01 | Outpatient (CLI) | payer OTHER ==
--- NOTE | 2024-07-02 08:34 | HMCSR ---
APPROVED REPORT EXAM: Two-dimensional and M-mode echocardiogram with Doppler and color Doppler. INDICATION ICD: I27.0 Primary pulmonary hypertension 2D Dimensions RVDd4.0 cmLVEF(%)65.2 (>50%)LVED Vol(simp.)119.0 mL IVSd0.9 (0.7-1.1cm)FS(%)36 %LVES Vol(simp.)43.2 mL LVDd4.5 (3.8-5.6cm)LA (2D)3.9 (1.6-4.0cm)LVEF(%, simp.)64 % PWd0.9 (0.7-1.1cm)Ao Root(2D)2.6 (2.0-3.7cm)LA ESV INDEX (4CH)23.20 mL/m2 IVSs1.3 cmLVOT diam2.1 (1.8-2.4cm)LA ESV INDEX (2CH)41.90 mL/m2 LVDs2.9 (2.5-4.0cm)LA ESV INDEX (BP)33.90 mL/m2 PWs1.4 cm M-Mode Dimensions LA (MM)3.4 (1.6-4.0cm) Ao Root(MM)2.9 (2.0-3.7cm) Aortic Valve AoV VTI0.3 mAo Mean GR4.0 mmHgLVOT VTI0.21 m SUHA (VMAX)2.3 cm2AVA (VTI) 2.3 cm2 Mitral Valve MV E Vmax56.8 cm/sDECEL Tjtp546 ms MV A Vmax76.6 cm/sP 1/2 T54 ms E/A ratio0.7MVA (PHT)4.1 cm2 TDI E/E' Medial9.2E/E' Lateral5.7 Medial E' Peak V6.20 cm/sLateral E' Peak V9.90 cm/s Left Ventricle The left ventricle is normal size. There is normal LV segmental wall motion. There is normal left jay tricular wall thickness. LVEF is 60-65%. The left ventricular diastolic function is normal. Right Ventricle The right ventricle is normal size. The right ventricular systolic function is normal. Atria The left atrium size is normal. The right atrium size is normal. Aortic Valve Calciified nodule on the noncoronary cusp. No aortic regurgitation is present. There is no aortic zahraa vular stenosis. Mitral Valve The mitral valve is normal in structure. There is no mitral valve regurgitation noted. There is no mi tral valve stenosis. Tricuspid Valve The tricuspid valve is normal in structure. There is no tricuspid valve regurgitation noted. Pulmonic Valve The pulmonary valve is normal in structure. There is no pulmonic valvular regurgitation. Great Vessels The aortic root is normal in size. The IVC is normal in size and collapses >50% with inspiration. Pericardium There is no pericardial effusion. Other Information Quality : Fair Conclusion LVEF is 60-65%. The left ventricular diastolic function is normal. There is normal LV segmental wall motion. Calciified nodule on the noncoronary cusp. No aortic regurgitation is present. There is no aortic valvular stenosis.
== END | disposition home or self-care (01) ==
LOC: RAH 14:39
PROVIDERS: ATTEND Internal Medicine Cardiovascular Disease
DX: I27.0 Primary pulmonary hypertension (principal); I70.0 Atherosclerosis of aorta
CPT/HCPCS: 93306

== ENCOUNTER 2024-07-14 12:17 | Observation (INO) | payer OTHER ==
[~2024-07-14] VITALS: Ht 165.1 cm; Wt 83.0 kg
[~2024-07-14 12:17] MED LIST changes: +AMIO200T68 PO; -AMOX1TAB15 PO; +CLOP75TA32 PO; -SOTA80TA PO
--- NOTE | 2024-07-14 13:14 | EKG ---
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
[2024-07-14 13:54] LABS: BASOPHILS # (AUTO) 0.07 K/uL (0.00-0.20); BASOPHILS % (AUTO) 0.6 % (0.0-5.0); HEMATOCRIT 37.3 % (36-48); IMMATURE GRANULOCYTE ABSOLUTE 0.05 K/uL (0-1); LYMPHOCYTES # (AUTO) 2.7 K/uL (1.0-4.8); LYMPHOCYTES % (AUTO) 22.2 % (21.0-51.0); MEAN CORPUSCULAR HEMOGLOBIN 29.3 pg (27.0-33.0); MEAN CORPUSCULAR HGB CONC 32.2 g/dL (32.0-36.0); MONOCYTES # (AUTO) 0.8 K/uL (0.1-1.0); MONOCYTES % (AUTO) 6.7 % (3.0-13.0); NEUTROPHILS # (AUTO) 8.5 K/uL (1.8-7.7); NEUTROPHILS % (AUTO) 70.1 % (40.0-77.0); PLATELET COUNT (AUTO) 374 K/uL (130-400); RED CELL DISTRIBUTION WIDTH 14.4 % (11.0-15.5); WHITE BLOOD COUNT (AUTO) 12.2 K/uL (4.8-10.8)
--- NOTE | 2024-07-14 13:58 | HMCIMG ---
CHEST 1VW HISTORY: Shortness of breath COMPARISON: 07/06/2024 FINDINGS: A frontal projection of the chest was obtained. There are bilateral pulmonary infiltrates suggestive of pulmonary vascular congestion with possible superimposed pneumonitis. The heart is borderline enlarged. Degenerative changes are seen. No evidence of aortic calcification is seen. IMPRESSION: 1. Bilateral pulmonary infiltrates are seen suggestive of pulmonary vascular congestion with possible superimposed pneumonitis.
[2024-07-14 14:13] LABS: MAGNESIUM 2.1 mg/dL (1.80-2.40)
[2024-07-14 14:25] LABS: B-TYPE NATRIURETIC PEPTIDE 1070 pg/mL (0-100)
--- NOTE | 2024-07-14 16:17 | HP ---
[facility] PH[facility] Date of Service: Jul 14, 2024 Time of Service: 16:17 HISTORY OF PRESENT ILLNESS: This is a 73-year-old female with past hypertension, hypothyroidism, diabetes mellitus type, pulmonary fibrosis history of FABRICIO history of recent takotsubo cardiomyopathy who presented to the hospital secondary to elevated blood pressure. Patient states she took her blood pressure today and she noted that her blood pressure was in the 170s systolic/120s diastolic. She noted that she was feeling dizzy with her high blood pressure. She is noted to be on telmisartan as outpatient. She states she gets intermittent high blood pressure readings at home. She denied any falls, syncopal episode, chest pain, shortness of breath, abdominal pain, nausea, vomiting. She was recently diagnosed with pulmonary fibrosis and was seeing a physician in [place]. They are planning to perform a lung biopsy in the future. She denies any headaches, upper or lower extremities paresthesias, lower extremity edema. Denied any shortness of breath with exertion. Secondary to elevated blood pressure patient thereafter came to the hospital for further evaluation. Labs in the ED were notable for blood pressure of 139/81, heart rate was in the 107s, patient was saturating 95%. Labs showed BNP of 1070. ER provider requested patient to be admitted to rule out heart failure. Chest x-ray showed changes of fibrosis in the lower lobes. REVIEW OF SYSTEMS CONSTITUTIONAL: Denies fevers, chills, or night sweats. No unintentional weight loss reported. NEUROLOGICAL: Denies headache, amaurosis fugax, motor weakness, sensory deficit, vertigo/spinning sensation, gait abnormalities, or tremors. Positive for dizziness ENT: No hearing loss, otalgia, otorrhea, rhinitis, rhinorrhea, hoarseness, or sore throat. CARDIOVASCULAR: Denies any exertional angina, dyspnea on exertion, orthopnea, paroxysmal nocturnal dyspnea, palpitations, life-threatening arrhythmias, claudication. PULMONARY: Denies any shortness of breath, cough, phlegm/sputum, hemoptysis, pleuritic chest pain. SLEEP: Denies morning headaches, daytime somnolence or napping. Denies difficulty falling asleep, staying asleep, waking from sleep. Denies knowledge of snoring. GASTROINTESTINAL: Denies any type of dysphagia to either liquids or solids. Denies nausea, vomiting, pyrosis, early satiety, abdominal pain, diarrhea, constipation, or changes in stool consistency or caliber. Denies coffee-ground emesis, hematemesis, hematochezia, or melanotic stools. GENITOURINARY: Denies frequency, urgency, nocturia, hematuria or incontinence (Storage/Irritative symptoms.) Low urinary stream, straining to void, urinary intermittency or hesitancy, splitting of the voiding stream, terminal dribbling. ENDOCRINOLOGIC: Denies polyuria, polydipsia, polyphagia or heat/cold intolerances. HEMATOLOGIC: Denies thrombophilia/previous clots, or coagulopathy/bleeding disorders. ONCOLOGIC: Denies personal history of malignancy. DERMATOLOGIC: Denies rashes or pruritus. PSYCHIATRIC: Denies any suicidal or homicidal ideation. Denies hallucinations. PAST MEDICAL HISTORY: Hypertension, hypothyroidism, diabetes mellitus type, pulmonary fibrosis history of FABRICIO, history of recent takotsubo cardiomyopathy PAST SURGICAL HISTORY: History of hysterectomy, cholecystectomy previous catheter ablation PAST SOCIAL HISTORY: Denied any smoking, alcohol, drug use FAMILY HISTORY: Denied any pertinent family history Coded Allergies: Sulfa (Sulfonamide Antibiotics) (Unverified Allergy, Unknown, 06/04/19) PHYSICAL EXAM GENERAL APPEARANCE: The patient is awake, alert, and oriented, in no acute cardiopulmonary distress. NEUROLOGICAL: Cranial nerves II-XII grossly intact. Motor is 5/5 in bilateral upper and lower extremities proximal to distal. No sensory deficits. HEENT: Face is symmetric. Pupils are equal and reactive. Extraocular movements are intact. NECK: Supple. No JVD. No thyromegaly. No submental, submandibular, pre- /postauricular, occipital or supraclavicular lymphadenopathy. CHEST: Normal chest expansion. No Telemetry. LUNGS: Absence of any rales, rhonchi or any wheezing. CARDIOVASCULAR: Regular. S1 and S2 normal. No appreciable rubs, murmurs or gallops. ABDOMEN: Soft, nontender, and nondistended. There is no rebound, voluntary guarding, or rigidity. : Deferred. No Cope. EXTREMITIES: Non-edematous and not cyanotic. No clubbing. Good capillary refill. SKIN: No skin breakdown. Vital Sign (Last 24 Hours) 07/14/24 13:12 Temp 99.1 Pulse 47 Resp 20 B/P (MAP) 135/63 Pulse Ox 99 O2 Delivery Room Air O2 Flow Rate 0 LABS: Laboratory: Test 07/14/24 13:40 Range/Units White Blood Count 12.2 H 4.8-10.8 K/uL Red Blood Count 4.10 4.00-5.50 MIL/uL Hemoglobin 12.0 12.0-16.0 g/dL Hematocrit 37.3 36-48 % Mean Corpuscular Volume 91.0 79-99 fL Mean Corpuscular Hemoglobin 29.3 27.0-33.0 pg Mean Corpuscular Hemoglobin Concent 32.2 32.0-36.0 g/dL Red Cell Distribution Width 14.4 11.0-15.5 % Platelet Count 374 130-400 K/uL Mean Platelet Volume 9.5 7.5-10.5 fL Immature Granulocyte % (Auto) 0.4 0-1 % Neutrophils (%) (Auto) 70.1 40.0-77.0 % Lymphocytes (%) (Auto) 22.2 21.0-51.0 % Monocytes (%) (Auto) 6.7 3.0-13.0 % Eosinophils (%) (Auto) 0.0 0.0-8.0 % Basophils (%) (Auto) 0.6 0.0-5.0 % Neutrophils # (Auto) 8.5 H 1.8-7.7 K/uL Lymphocytes # (Auto) 2.7 1.0-4.8 K/uL Monocytes # (Auto) 0.8 0.1-1.0 K/uL Eosinophils # (Auto) 0.00 0.00-0.70 K/uL Basophils # (Auto) 0.07 0.00-0.20 K/uL Absolute Immature Granulocyte (auto 0.05 0-1 K/uL Nucleated Red Blood Cells 0.0 0.0-0.19 % Sodium Level 138 136-145 mmol/L Potassium Level 4.0 3.5-5.1 mmol/L Chloride Level 101 101-111 mmol/L Carbon Dioxide Level 31 21-32 mmol/L Blood Urea Nitrogen 8 7-18 mg/dL Creatinine 1.0 0.5-1.0 mg/dL Glomerular Filtration Rate Calc 60 >90 mL/min Random Glucose 112 H 70-105 mg/dL Total Calcium 9.5 8.5-10.1 mg/dL Magnesium Level 2.10 1.80-2.40 mg/dL Total Creatine Kinase 61 # 21-232 U/L Troponin I High Sensitivity 21 4-50 ng/L B-Type Natriuretic Peptide 1070 H 0-100 pg/mL DIAGNOSTICS / RADIOLOGY: [ ] ASSESSMENT: Symptomatic hypertension Acute on chronic chf with systolic and diastolic dysfunction rule out EF of 30- 35 % History of takotsubo cardiomyopathy with EF of 30-35% Dizziness likely in setting of hypertension History of recently diagnosed pulmonary fibrosis History of atrial fibrillation on chronic anticoagulation with Eliquis Hypothyroidism Diabetes mellitus type Hypertension PLAN: - patient to be admitted to medical-surgical unit with telemetry for observation -in reference to symptomatic hypertension. Patient's condition was improved. She denies any focal deficits. We will restart her home antihypertensives and titrate medications as needed. - obtain orthostatic vital signs -check TSH, A1c, procalcitonin, CRP -patient noted to be on amiodarone outpatient. We will clarify with Cardiology regarding continuation of medication setting of pulmonary fibrosis. Appreciate recommendations. -further orders per hospitalization course. Advanced Care Planning Which of the following were discussed: Hospice care: Yes __ No _x_ Therapeutic options: Yes __ No __ Advance directives: Yes __ No __ Other discussions: Discussed with who?: patient (Patient, family or surrogates) Voluntary nature of this service was explained to the patient? Yes _x_ No __ Amount of time spent: 25 minutes DAYANNA Byrd MD, MD Jul 14, 2024 16:17
[2024-07-14] MEDS ORDERED: hydrALAZine 20MG/ML VIAL IV PRN (16:30)
[2024-07-14] MEDS ORDERED: acetaMINOPHEN 500 MG TABLET PO PRN (16:30)
--- NOTE | 2024-07-14 16:41 | NUR ---
DR. STALEY BY TO SEE PT.
--- NOTE | 2024-07-14 16:59 | NUR ---
PT JUST NOW PLACED IN MY ED BED 9
[2024-07-14 17:17] LABS: HEMOGLOBIN A1C 5.9 % (4.0-6.0)
[2024-07-14 17:24] LABS: THYROID STIMULATING HORMONE 5.19 uIU/mL (0.36-3.74)
[2024-07-14] MEDS: furoSEMIDE 40MG VIAL IV ONE (17:30)
[2024-07-14] MEDS: LoSARTan 50 MG TABLET PO ONE (17:31)
--- NOTE | 2024-07-14 17:32 | CONS ---
[facility] CARDIOLOGY CONSULTATION REPORT Cardiology consultation note dictated for Jony Markham MD Date Patient Seen: Jul 14, 2024 Requesting Physician: Deepak Cerda MD Reason for Consultation: History of Takotusubo cardio, history of pulmonary fiborsis on amiodarone History of Present Illness: This is a 73-year-old female with a past medical history of HTN, paroxysmal atrial fibrillation on chronic anticoagulation with apixaban, NSTEMI s/p LHC on 07/06/2024 which found normal coronaries with an LVEF of 30%, 2D Echo on 07/07/2024 with an EF of 30-35%, grade 2 diastolic dysfunction, hypokinetic distal anterior wall, apex and distal inferior wall suggestive of takotsubo with trace mitral regurgitation, diabetes mellitus type 2 with nephropathy, CT calcium score of 373 in November of 2021, hypothyroidism, obstructive sleep apnea, and recently diagnosed to have pulmonary fibrosis who presented to the ED with complaints of elevated blood pressure with sbp in the 170's. Cardiology has been consulted due to her recent history of Takotusubo car diomyopathy and history of pulmonary fibrosis on amiodarone therapy. The patient she reported she came to the ED due to a home blood pressure reading of 174/109mmHg with a hr of 103bpm. Blood pressure on admission of 135/65mmHg with a hr 47bpm. She currently denies chest pain, palpitations, shortness of breath, dizziness, nausea or vomiting. BNP of 1070. Chest x-ray demonstrating bilateral pulmonary infiltrates and pulmonary vascular congestion. Past Medical History: As per HPI and summarized below Past Surgical History: Hysterectomy Cholecystectomy Previous catheter ablation Family History: Family history is positive for CAD. Social History: The patient lives with her . Habits: She denies alcohol, tobacco, or illicit drug use. Home Meds: Amiodarone 200 mg b.i.d. Clopidogrel 75 mg daily Eliquis 5mg b.i.d. Atorvastatin 40 mg nightly Spironolactone 25 mg daily Gabapentin 600 mg b.i.d. Levothyroxine 25 mcg daily Current Meds: None entered yet Review of Systems: CONST: No fever, fatigue, or weight changes. EYES: No recent vision problems. ENT: No congestion, ear pain, or sore throat. C/V: No chest pain, palpitations, or edema. RESP: No cough, congestion, wheezing or shortness of breath. GI: No abdominal pain, nausea, vomiting, constipation, or diarrhea. : No incontinence or dysuria. SKIN: No rash. NEURO: No headache, focal numbness or weakness, dizziness, or seizures. PSYCH: No depression or anxiety. HEME: No abnormal bruising or bleeding. LYMPH: No swollen glands. Physical Examination: Unable to perform a physical exam as the patient is in the hallway Vital Signs (last 8hr) Date Time Temp Pulse Resp B/P (MAP) Pulse Ox O2 Delivery O2 Flow Rate FiO2 07/14/24 13:12 99.1 47 20 135/63 99 Room Air 0 Laboratory: Hematology Labs: Test 07/14/24 13:40 Range/Units White Blood Count 12.2 H 4.8-10.8 K/uL Red Blood Count 4.10 4.00-5.50 MIL/uL Hemoglobin 12.0 12.0-16.0 g/dL Hematocrit 37.3 36-48 % Mean Corpuscular Volume 91.0 79-99 fL Mean Corpuscular Hemoglobin 29.3 27.0-33.0 pg Mean Corpuscular Hemoglobin Concent 32.2 32.0-36.0 g/dL Red Cell Distribution Width 14.4 11.0-15.5 % Platelet Count 374 130-400 K/uL Mean Platelet Volume 9.5 7.5-10.5 fL Immature Granulocyte % (Auto) 0.4 0-1 % Neutrophils (%) (Auto) 70.1 40.0-77.0 % Lymphocytes (%) (Auto) 22.2 21.0-51.0 % Monocytes (%) (Auto) 6.7 3.0-13.0 % Eosinophils (%) (Auto) 0.0 0.0-8.0 % Basophils (%) (Auto) 0.6 0.0-5.0 % Neutrophils # (Auto) 8.5 H 1.8-7.7 K/uL Lymphocytes # (Auto) 2.7 1.0-4.8 K/uL Monocytes # (Auto) 0.8 0.1-1.0 K/uL Eosinophils # (Auto) 0.00 0.00-0.70 K/uL Basophils # (Auto) 0.07 0.00-0.20 K/uL Absolute Immature Granulocyte (auto 0.05 0-1 K/uL Nucleated Red Blood Cells 0.0 0.0-0.19 % Chemistry Labs: Test 07/14/24 13:40 Range/Units Sodium Level 138 136-145 mmol/L Potassium Level 4.0 3.5-5.1 mmol/L Chloride Level 101 101-111 mmol/L Carbon Dioxide Level 31 21-32 mmol/L Blood Urea Nitrogen 8 7-18 mg/dL Creatinine 1.0 0.5-1.0 mg/dL Glomerular Filtration Rate Calc 60 >90 mL/min Random Glucose 112 H 70-105 mg/dL Total Calcium 9.5 8.5-10.1 mg/dL Magnesium Level 2.10 1.80-2.40 mg/dL Total Creatine Kinase 61 # 21-232 U/L Troponin I High Sensitivity 21 4-50 ng/L B-Type Natriuretic Peptide 1070 H 0-100 pg/mL Diagnostics / Radiology: Impression and Plan: Acute on chronic combined systolic and diastolic congestive heart failure Hypertension Paroxysmal atrial fibrillation Chronic anticoagulation with apixaban NSTEMI s/p LHC with normal coronary arteries and LVEF of 30% on 07/06/2024 Hypothyroidism Diabetes mellitus type 2 with neuropathy Obstructive sleep apnea Pulmonary fibrosis 2D Echo on 07/07/2024 with an EF of 30-35%, grade 2 diastolic dysfunction, hypokinetic distal anterior wall, apex and distal inferior wall suggestive of takotsubo with trace mitral regurgitation Acute on chronic combined systolic and diastolic congestive heart failure BNP of 1070 Chest x-ray demonstrating bilateral pulmonary infiltrates and pulmonary vascular congestion -Lasix 40 mg IV x1 then start Lasix 40 mg p.o. daily starting tomorrow on 07/15 -Continue Losartan 50 mg daily, Metoprolol succinate 50 mg daily, and Spironolactone 25 mg daily Paroxysmal atrial fibrillation Chronic anticoagulation with apixaban -Continue Amiodarone 200 mg daily, Eliquis 5 mg b.i.d., and Metoprolol succinate 50 mg daily -Plans for Amiodarone therapy to continue for a short duration then will discontinue as an outpatient to avoid worsening pulmonary fibrosis Recent NSTEMI LHC on 07/06/2024 demonstrating normal coronary arteries with depressed ejection fraction of 30%, likely Takotsubo syndrome -Continue Aspirin 81 mg daily, Atorvastatin 40mg nightly, Losartan 50 mg daily and Metoprolol Succinate 50 mg daily [facility] Jul 14, 2024 17:32
--- NOTE | 2024-07-14 19:05 | NUR ---
REPORT ENDORSED TO REMY PETERSON
[2024-07-14] MEDS: atorVAStatin 40 MG TABLET PO SCH (20:29)
[2024-07-14] MEDS: FAMOTIDINE 20MG TAB PO SCH (20:29)
[2024-07-14] MEDS: APIXaban 5 MG TABLET PO SCH (20:29)
[2024-07-15] MEDS ORDERED: LEVO25TA9 PO (00:11)
[2024-07-15] MEDS ORDERED: AMIO200T68 PO (00:11)
[2024-07-15] MEDS ORDERED: ATOR40TA71 PO (00:11)
[2024-07-15] MEDS ORDERED: SPIR25TA6 PO (00:11)
[2024-07-15] MEDS ORDERED: OMEP20CA12 PO (00:11)
[2024-07-15] MEDS ORDERED: TELM80TA10 PO (00:11)
[2024-07-15] MEDS ORDERED: CLOP75TA32 PO (00:11)
[2024-07-15] MEDS ORDERED: GABA-1405 PO (00:11)
[2024-07-15 06:41] LABS: CREATININE 1.2 mg/dL (0.5-1.0); POTASSIUM 3.9 mmol/L (3.5-5.1)
--- NOTE | 2024-07-15 07:27 | PN ---
[facility] Cardiology Progress Note CARDIOLOGY PROGRESS NOTE JULY 15, 2024 Problems: 1. Acute on chronic combined systolic and diastolic heart failure with BNP level of 1070 on admission 2. Takotsubo syndrome with normal coronary arteries and LV ejection fraction of 30% April 06, 2024 3. Paroxysmal atrial fibrillation 4. Chronic anticoagulation with the apixaban 5. Hypertension 6. Hypothyroidism 7. Diabetes mellitus type 2 with neuropathy 8. Obstructive sleep apnea 9. History of pulmonary fibrosis Blood pressure is running 120-140 systolic heart rate is in the 80s the patient is afebrile. Potassium 3.9 BUN 11 creatinine 1.2. The patient continues on amiodarone apixaban aspirin atorvastatin furosemide losartan and metoprolol succinate. He received 40 mg of furosemide IV yesterday. Weight is 83 kilos essentially unchanged from admission. With regard to the use of amiodarone and her history of pulmonary fibrosis. Anticipate that she will only be on this medicine for 2-3 months at which point if her ejection fraction improves we will switch back to sotalol which he had taken in the past. She had tried dronedarone medication but cannot tolerate this. Despite no significant change in her weight she has diuresed well and feels well this morning. She denies any chest pain shortness of breath dizziness fainting palpitations or orthopnea. This point I believe she can be discharged home and follow up with me as an outpatient. Discharge instructions with regard to diet activity level medications has been given. Medications have been reconciled. She can see me in 1-2 weeks. PIERRE STALEY MD Jul 15, 2024 07:27
--- NOTE | 2024-07-15 07:30 | NUR ---
ASSESSMENT: PT FOUND ALERT AND SITTING UP IN BED. NO ACUTE DISTRESS NOTED. NEURO: PT A/O X 4. GCS 15. PT FOLLOWS SIMPLE AND COMPLEX COMMANDS. PT DENIES ANY DIZZINESS, CP AT THIS TIME. PUPILS ARE 3MM OU PERRLA. PT WHEN GETS UP IS ABLE TO AMBULATE W/A STEADY AND EVEN GAIT. NEUROLOGICALLY INTACT. CARDIO/PULMONARY: WNL GI/: WNL MUSCULO/INTEGUMENTARY: WNL
--- NOTE | 2024-07-15 07:45 | NUR ---
CARDIOLOGY CONSULT: DR STALEY JUST ARRIVED AT PT BS.
[2024-07-15] MEDS ORDERED: ASPI-1005 PO (08:10)
[2024-07-15] MEDS ORDERED: METO50TA9 PO (08:10)
[2024-07-15] MEDS ORDERED: FURO40TA7 PO (08:10)
[2024-07-15] MEDS ORDERED: AMIO200T44 PO (08:10)
--- NOTE | 2024-07-15 08:16 | NUR ---
HOSPITALIST: CALL PLACED TO INFORM THEM OF D/C ORDER PER DR STALEY CARDIOLOGY
--- NOTE | 2024-07-15 08:23 | NUR ---
DISCHARGE PLANNING: I SPOKE TO DAR WILKINSON AND INFORMED HER THAT PER DR STALEY, PT MAY GO HOME FROM THE CARDIAC STAND POINT
[2024-07-15 09:00] VITALS: TEMP 99
[2024-07-15] MEDS: LoSARTan 50 MG TABLET PO SCH (09:32)
[2024-07-15] MEDS: AMIOdarone 200 MG TABLET PO SCH (09:32)
[2024-07-15] MEDS: ASPIRIN 81MG CHEW TAB PO SCH (09:33)
[2024-07-15] MEDS: furoSEMIDE 40 MG TABLET PO SCH (09:33)
[2024-07-15] MEDS: SPIRONOLACTONE 25 MG TAB PO SCH (09:33)
[2024-07-15] MEDS: metOPROLol sucCINATE 50 MG TAB.SR.24H PO SCH (09:33)
--- NOTE | 2024-07-15 10:46 | DS ---
Discharge Summary Hospital Course Summary: This is a 73-year-old female with past hypertension, hypothyroidism, diabetes mellitus type, pulmonary fibrosis history of FABRICIO history of recent takotsubo cardiomyopathy who presented to the hospital secondary to elevated blood pressure. Patient states she took her blood pressure today and she noted that her blood pressure was in the 170s systolic/120s diastolic. She noted that she was feeling dizzy with her high blood pressure. She is noted to be on telmisartan as outpatient. She states she gets intermittent high blood pressure readings at home. She denied any falls, syncopal episode, chest pain, shortness of breath, abdominal pain, nausea, vomiting. She was recently diagnosed with pulmonary fibrosis and was seeing a physician in [place]. They are planning to perform a lung biopsy in the future. She denies any headaches, upper or lower extremities paresthesias, lower extremity edema. Denied any shortness of breath with exertion. Secondary to elevated blood pressure patient thereafter came to the hospital for further evaluation. Labs in the ED were notable for blood pressure of 139/81, heart rate was in the 107s, patient was saturating 95%. Labs showed BNP of 1070. ER provider requested patient to be admitted to rule out heart failure. Chest x-ray showed changes of fibrosis in the lower lobes. Patient was evaluated in the emergency department by rod bending machine operator as patient has recent NSTEMI, status post left heart catheterization on 07/06/2024 demonstrating normal coronary arteries with depressed ejection fraction of 30%, likely Takotsubo's syndrome. Recommendation is to continue vnhvsue30 mg daily, atorvastatin 40 mg nightly, losartan 50 mg daily and metoprolol succinate 50 mg daily. Patient also has greater than anticoagulation with apixaban due to paroxysmal atrial fibrillation for which rod bending machine operator recommending to continue with amiodarone 200 mg daily, Eliquis5 mg b.i.d. metoprolol succinate 50 mg daily. Plans for amiodarone therapy to continue for a short duration then we will discontinue as an outpatient to avoid worsening pulmonary fibrosis. Overnight patient offers no complaints. This morning she was evaluated by Dr. Garcia's who cleared patient for discharge and follow up with him as an outpatient. Dr. Garcia's discharge patient and reconciled medications, she is hemodynamically stable and can be discharged home today. Electron Tube Assembler(s): Dr. Markham, rod bending machine operator Assessment/Plan: Discharge diagnoses: 1. Acute on chronic combined systolic and diastolic heart failure with BNP level of 1070 on admission 2. Takotsubo syndrome with normal coronary arteries and LV ejection fraction of 30% April 06, 2024 3. Paroxysmal atrial fibrillation 4. Chronic anticoagulation with the apixaban 5. Hypertension 6. Hypothyroidism 7. Diabetes mellitus type 2 with neuropathy 8. Obstructive sleep apnea 9. History of pulmonary fibrosis ASSESSMENT: Symptomatic hypertension Acute on chronic chf with systolic and diastolic dysfunction rule out EF of 30- 35 % History of takotsubo cardiomyopathy with EF of 30-35% Dizziness likely in setting of hypertension History of recently diagnosed pulmonary fibrosis History of atrial fibrillation on chronic anticoagulation with Eliquis Hypothyroidism Diabetes mellitus type Hypertension PLAN: - patient to be admitted to medical-surgical unit with telemetry for observation -in reference to symptomatic hypertension. Patient's condition was improved. She denies any focal deficits. We will restart her home antihypertensives and titrate medications as needed. - obtain orthostatic vital signs -check TSH, A1c, procalcitonin, CRP -patient noted to be on amiodarone outpatient. We will clarify with Cardiology regarding continuation of medication setting of pulmonary fibrosis. Appreciate recommendations. -further orders per hospitalization course. Advanced Care Planning Which of the following were discussed: Hospice care: Yes __ No _x_ Therapeutic options: Yes __ No __ Advance directives: Yes __ No __ Other discussions: Discussed with who?: patient (Patient, family or surrogates) Voluntary nature of this service was explained to the patient? Yes _x_ No __ Amount of time spent: 25 minutes Anthony Cerda MD Discharge Instructions: Follow-up with PCP in 2-3 days Follow up with Dr. Saravia in 2-3 weeks Home Medications: Active Scripts Metoprolol Succinate (Toprol Xl) 50 Mg Tab.er.24h, 25 MG PO DAILY, #30 TAB 3 Refills Prov:PIERRE MARKHAM MD 07/15/24 Amiodarone HCl (Pacerone) 200 Mg Tablet, 200 MG PO DAILY, #30 TAB 3 Refills Prov:PIERRE MARKHAM MD 07/15/24 Furosemide (Lasix 40Mg Tab) 40 Mg Tablet, 40 MG PO DAILY, #30 TAB 3 Refills Prov:PIERRE MARKHAM MD 07/15/24 Aspirin (ASPIRIN 81MG CHEW TAB) 81 Mg Tab.chew, 81 MG PO DAILY, #30 TAB.CHEW 1 Refill Prov:PIERRE MARKHAM MD 07/15/24 Reported Medications Gabapentin (Gabapentin) 600 Mg Tablet, 2 TAB PO BID for 30 Days, #90 TAB 0 Refills 07/15/24 Levothyroxine Sodium (Synthroid 25 Mcg Tab) 25 Mcg Tablet, 1 TAB PO ACBKFST for 30 Days, #30 TAB 0 Refills 07/15/24 Atorvastatin Calcium (Atorvastatin Calcium) 40 Mg Tablet, 1 TAB PO HS for 30 Days, #30 TAB 0 Refills 07/15/24 Omeprazole (Omeprazole) 20 Mg Capsule.dr, 1 CAP PO BID for 30 Days, #30 CAP 0 Refills 07/15/24 Spironolactone (Spironolactone) 25 Mg Tablet, 1 TAB PO DAILY for 30 Days, #30 TAB 0 Refills 07/15/24 Apixaban (Eliquis) 5 Mg Tablet, 1 TAB PO BID for 30 Days, #60 TAB 0 Refills 07/06/24 Telmisartan (Telmisartan) 80 Mg Tablet, 80 MG PO HS, TAB 10/08/23 Metformin HCl (Metformin HCl) 500 Mg Tablet, 500 MG PO BID, TAB 10/08/23 Discontinued Reported Medications Clopidogrel Bisulfate (Clopidogrel) 75 Mg Tablet, 1 TAB PO DAILY for 30 Days, #30 TAB 0 Refills 07/15/24 Telmisartan (Telmisartan) 80 Mg Tablet, 2 TAB PO HS for 30 Days, #30 TAB 0 Refills 07/15/24 Amiodarone HCl (Amiodarone HCl) 200 Mg Tablet, 1 TAB PO BID for 30 Days, #30 TAB 0 Refills 07/15/24 Spironolactone (Spironolactone) 25 Mg Tablet, 1 TAB PO DAILY for 30 Days, #30 TAB 0 Refills 07/06/24 Levothyroxine Sodium (Levothyroxine) 25 Mcg Capsule, 25 MCG PO DAILY, CAP 07/06/24 Atorvastatin Calcium (LIPITOR) 40 Mg Tablet, 1 TAB PO HS for 30 Days, #30 TAB 0 Refills 07/06/24 Gabapentin (Gabapentin) 600 Mg Tablet, 2 TAB PO BID for 30 Days, #90 TAB 0 Refills 07/06/24 [Hydroxyzine] No Conflict Check, 50 MG PO HS 10/08/23 Hydrochlorothiazide (Hydrochlorothiazide) 25 Mg Tablet, 25 MG PO AM, TAB 10/08/23 Levothyroxine Sodium (Levothyroxine) 25 Mcg Capsule, 25 MCG PO ACBKFST, CAP 07/11/21 Omeprazole (Omeprazole) 20 Mg Capsule.dr, 20 MG PO DAILY, CAP 07/11/21 Potassium Chloride (Potassium Chloride) 20 Meq Tablet.er, 40 MEQ PO DAILY, TAB 07/11/21 Omeprazole (Omeprazole) 20 Mg Capsule.dr, 1 CAP PO BID for 30 Days, #30 CAP 0 Refills 07/06/24 Telmisartan (Telmisartan) 80 Mg Tablet, 2 TAB PO HS for 30 Days, #30 TAB 0 Refills 07/06/24 Sotalol HCl (Sotalol) 80 Mg Tablet, 1 TAB PO BID for 30 Days, #60 TAB 0 Refills 07/06/24 Spironolactone (Spironolactone) 25 Mg Tablet, 25 MG PO AM, TAB 10/08/23 Sotalol HCl (Sotalol) 80 Mg Tablet, 80 MG PO [id number], TAB 10/08/23 Atorvastatin Calcium (LIPITOR) 40 Mg Tablet, 40 MG PO DAILY, TAB 07/11/21 Gabapentin (Gabapentin) 600 Mg Tablet, 1200 MG PO BID, TAB 07/11/21 Discontinued Scripts Amiodarone HCl (Amiodarone HCl) 200 Mg Tablet, 200 MG PO BID for 30 Days, #60 TAB 1 Refill Prov:JOLENE CHUNG [facility] 07/08/24 Clopidogrel Bisulfate (Clopidogrel) 75 Mg Tablet, 75 MG PO DAILY, #30 TAB 3 Refills Prov:JOLENE CHUNG [facility] 07/08/24 Sotalol HCl (Sotalol) 80 Mg Tablet, 80 MG PO BID, #60 TAB 0 Refills Prov:MARKUS ECHEVARRIA STATE APPELLATE CLERK 01/06/24 Amoxicillin/Potassium Clav (Amox Tr-K Clv 500-125 mg Tab) 500 Mg-125 Mg Tablet, 1 EACH PO BID, #10 TAB 0 Refills Prov:MARKUS ECHEVARRIA STATE APPELLATE CLERK 01/06/24 Apixaban (Eliquis) 5 Mg Tablet, 5 MG PO BID, #60 TAB 0 Refills Prov:DAR WILLS 07/13/21 Time spent arranging discharge: 31-60 minutes ATTESTATION BY PHYSICIAN I have seen and examined the patient. I reviewed the documentation, medical decision making, and treatment plan as noted by the mid-level provider above. I agree with the findings and plan of care. CHUCHO GREER MD, JANICE B AGBARTOLO Jul 15, 2024 10:46
--- NOTE | 2024-07-15 10:49 | NUR ---
MEDICATION RECONCILIATION: PT STATES SHE NO LONGER TAKES METFORMIN. THAT IT HAS BEEN QUITE A WHILE.
--- NOTE | 2024-07-15 11:40 | NUR ---
PT D/C'D TO HOME AND JUST AWAITING FOR HER SPOUSE TO PICK HER UP.
[2024-07-15 12:14] VITALS: BP 124/69; PULSE 75; RESP 18; O2SAT 100
--- NOTE | 2024-07-15 12:14 | NUR ---
PT STATES HER SPOUSE IS ON HIS WAY TO COME AND PICK HER UP.
--- NOTE | 2024-07-15 16:38 | NUR ---
PT order rec'd but per EMR she is DC home.
== END 2024-07-15 10:24 | disposition home or self-care (01) ==
LOC: EDH 12:17 → EDHIP 16:12 → INTOOBSV 16:12 → EDHIP 20:15
PROVIDERS: ADMIT Internal Medicine; ATTEND Internal Medicine
DX: I11.0 Hypertensive heart disease with heart failure (principal); I50.43 Acute on chronic combined systolic (congestive) and diastolic (congestive) heart failure; I48.0 Paroxysmal atrial fibrillation; E03.9 Hypothyroidism, unspecified; G47.33 Obstructive sleep apnea (adult) (pediatric); E11.43 Type 2 diabetes mellitus with diabetic autonomic (poly)neuropathy; I21.4 Non-ST elevation (NSTEMI) myocardial infarction; I25.10 Atherosclerotic heart disease of native coronary artery without angina pectoris; E11.21 Type 2 diabetes mellitus with diabetic nephropathy; K31.84 Gastroparesis; E78.00 Pure hypercholesterolemia, unspecified; I25.2 Old myocardial infarction; J84.10 Pulmonary fibrosis, unspecified; I34.0 Nonrheumatic mitral (valve) insufficiency; Z90.49 Acquired absence of other specified parts of digestive tract; Z79.82 Long term (current) use of aspirin; Z79.899 Other long term (current) drug therapy; Z79.01 Long term (current) use of anticoagulants; Z90.710 Acquired absence of both cervix and uterus; Z88.2 Allergy status to sulfonamides
CPT/HCPCS: 99285; 83036; 84443; 82550; 83735; 84484; 80048 ×2; 83880; 85025; 86140; 36415 ×2; 71045; 96374; 93005; 84145; G0378 ×18; J1940

== ENCOUNTER → 2024-12-23 | Outpatient (CLI) | payer OTHER ==
[~2024-12-23] MED LIST changes: +AMIO200T44 PO; -AMIO200T68 PO; +ASPI-1005 PO; -ATOR40TA69 PO; +ATOR40TA71 PO; -CLOP75TA32 PO; +FURO40TA7 PO; -HYDR25TA PO; -HYDROXYZINE PO; -LEVO25CA4 PO; +LEVO25TA9 PO; +METO50TA9 PO; -POTA-364 PO
--- NOTE | 2024-12-24 10:10 | HMCIMG ---
[facility] SCREENING BREAST HISTORY: Screening mammogram. COMPARISON: 12/15/2023 TECHNIQUE: Bilateral screening mammogram with CAD was performed with craniocaudal and mediolateral oblique projections. Additional tomosynthesis images were obtained. FINDINGS: The breasts are heterogeneously dense which may obscure small masses. There is no evidence of a dominant mass, or suspicious microcalcification. There is no evidence of nipple retraction or skin thickening. IMPRESSION: 1. Stable mammogram. Patient was entered into a reminder system with a target due date for their next mammogram. BI-RADS: CATEGORY 2: BENIGN FINDINGS Recommend monthly self breast exam as well as annual clinical examination. A negative x-ray should not delay biopsy if a dominant or clinically suspicious mass is present, since 8-10% of cancers are not identified by mammography. Dense breasts particularly, may obscure an underlying neoplasm. Some of these may be detected clinically and therefore, clinical examination is an essential part of breast evaluation.
== END | disposition home or self-care (01) ==
LOC: RAH 11:24
PROVIDERS: ATTEND Internal Medicine
DX: Z12.31 Encounter for screening mammogram for malignant neoplasm of breast (principal); R92.333 Mammographic heterogeneous density, bilateral breasts
CPT/HCPCS: 77063; 77067

== ENCOUNTER → 2025-07-19 | Outpatient (CLI) | payer OTHER ==
[~2025-07-19] MED LIST changes: -AMIO200T44 PO; -ASPI-1005 PO; +ASPI-1197 PO; +ATOR40TA69 PO; -ATOR40TA71 PO; +DRON400T7 PO; +FURO20TA4 PO; -FURO40TA7 PO; +LEVO25TA4 PO; -LEVO25TA9 PO; -METF-444 PO; +METO-408 PO; -METO50TA9 PO; +POTA-202 PO; -TELM80TA10 PO
[2025-07-19 14:55] LABS: ABG BASE EXCESS 2.5 mmol/L (-2.0-3.0); ABG HCO3 26.6 mmol/L (21.0-28.0); ABG OXYGEN SATURATION 95.1 % (94.0-98.0); ABG PCO2 39 mmHg (32-45); ABG PH 7.451 (7.350-7.450); CARBON MONOXIDE 1.0 % (0.5-1.5); DEVICE COMMENT RR ROOM AIR; PO2, ARTERIAL BG 73.6 mmHg (83.0-108.0); TEMPERATURE, CELSIUS BG 37.0 CELSIUS (35.5-37.0)
== END ==
LOC: LAB 11:54
PROVIDERS: ATTEND Student in an Organized Health Care Education/Training Program
DX: J84.115 Respiratory bronchiolitis interstitial lung disease (principal); F32.A Depression, unspecified; I10 Essential (primary) hypertension; K21.9 Gastro-esophageal reflux disease without esophagitis; F41.1 Generalized anxiety disorder; E78.5 Hyperlipidemia, unspecified; G47.33 Obstructive sleep apnea (adult) (pediatric); I48.91 Unspecified atrial fibrillation; Z79.01 Long term (current) use of anticoagulants; Z99.81 Dependence on supplemental oxygen
CPT/HCPCS: 36600; 82435; 82803; 82947; 83605; 84132; 84295; 85018